=== PATIENT | male | born 1955 | race African-American/Black ===

== ENCOUNTER 2016-12-30 06:07 | Inpatient (IN) | payer OTHER ==
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
--- NOTE | ~2016-12-30 | US6 ---
[facility] A Service of [facility] & [facility] RADIOLOGY TEXT RESULTS PATIENT: AGUSTIN VAZQUEZ LOCATION: Psychiatric 566-01 : [birth year] UNIT #: [id number] AGE: [address]: Monroe Powell MD SEX: M ORDER DR: [id number] [facility] [address] [place], [place] [address] [id number] I MR#: [id number] Acc #: [id number] NAME: AGUSTIN VAZQUEZ. : 1955 SEX: M STUDY DATE/TIME: 01/02/2017 15:47 UNIT: Psychiatric ROOM: [facility] STUDY DESCRIPTION: US Abdominal Limited Attending Physician: Monroe Powell M.D. Ordering Physician: Monroe Powell M.D. Primary Care Physician: Maribel Krause M.D. MEDICAL IMAGING REPORT This report is preliminary unless electronic signature is present EXAM Right upper quadrant sonogram HISTORY 62-year-old male, known liver mass. History of alcohol use, cirrhosis and chronic hepatitis C. COMPARISON CT abdomen and pelvis 11/28/2016. FINDINGS Real-time examination demonstrates a hypoechoic mass lesion off the posterior aspect of the right lobe of the liver. This measures 4.6 x 4.6 x about 5.1 cm and not significantly changed from the patient's recent CT scan. The ultrasound findings are nonspecific but based on the CT, this was reported to be concerning for hepatocellular carcinoma. No other liver lesions are identified. Slightly coarse liver echotexture but no obvious surface nodularity identified. No intra- or extrahepatic ductal dilatation. Common bile duct measures 2.2 mm. The gallbladder demonstrates a small amount of sludge but no gallbladder wall thickening or stones. The right kidney appears normal measuring 10.2 cm in length. No hydronephrosis. No ascites. Pancreas poorly visualized due to overlying gas. Normal flow within the portal vein. IMPRESSION 1. Ultrasound confirms a hypoechoic mass in the posterior aspect of the right hepatic lobe, not significantly changed from patient's recent CT of 11/28/2016. Differential would include both benign as well as malignant processes. However, based on the CT findings and the patient's risk factors, hepatocellular carcinoma would be a strong consideration. 2. Small amount of gallbladder sludge but no gallstones. [facility] A Service of [facility] RADIOLOGY TEXT RESULTS PATIENT: AGUSTIN VAZQUEZ LOCATION: [place] [address] : [birth year] UNIT #: [id number] AGE: [address]: Monroe Powell MD SEX: M ORDER DR: Dictated by... Bk Pearl M.D. THIS IS AN ELECTRONICALLY VERIFIED REPORT Bk Pearl M.D. at 01/07/2017 1:20 PM GUALBERTO/jerald TD: 01/02/2017 19:16 JOB #: [id number] MEDICAL IMAGING REPORT Page 1 of 1 COPY
--- NOTE | ~2016-12-30 | EKG ---
PATIENT: AGUSTIN VAZQUEZ UNIT #: [id number] Ventricular Rate: 71 BPM Atrial Rate: 71 BPM P-R Interval: 168 ms QRS Duration: 90 ms Q-T Interval: 400 ms QTC Calculation(Bezet): 434 ms P [place]: 58 degrees Calculated R [place]: 44 degrees Calculated T [place]: -12 degrees Diagnosis Line: Normal sinus rhythm Diagnosis Line: nonspecific ST-T abnormalities Diagnosis Line: Abnormal ECG Diagnosis Line: No previous ECGs available Diagnosis Line: Confirmed by CHERELLE MORENO MD ([id number]) on Diagnosis Line: 12/30/2016 12:50:40 PM INTERPRETING MD: ALEXANDRU
--- NOTE | ~2016-12-30 | US77 ---
[facility] A Service of [facility] & [facility] RADIOLOGY TEXT RESULTS PATIENT: AGUSTIN VAZQUEZ [facility] 566-01 : [birth year] UNIT #: [id number] AGE: [address]: Monroe Powell MD SEX: M ORDER DR: [id number] [facility] [address] [place], [place] [address] [id number] I MR#: [id number] Acc #: [id number] NAME: AGUSTIN VAZQUEZ. : 1955 SEX: M STUDY DATE/TIME: 12/30/2016 10:16 [facility]OM: [facility] STUDY DESCRIPTION: US Kidney Bilateral Complete Attending Physician: Brooke Haddad M.D. Ordering Physician: Brooke Haddad M.D. Primary Care Physician: Maribel Krause M.D. MEDICAL IMAGING REPORT This report is preliminary unless electronic signature is present EXAM Renal ultrasound INDICATIONS Acute renal failure. Elevated BUN and creatinine. GFR 10.4. No comparisons. FINDINGS Murry-scale imaging of the kidneys and urinary bladder was performed. The right kidney measures 11.8 cm in length. No hydronephrosis. On the left the left kidney measures 9.8 cm in length. There is no hydronephrosis. The renal cortical thickness and echogenicity appears normal bilaterally. Bladder is distended with urine. IMPRESSION No hydronephrosis. Dictated by... Timothy Pearl M.D. THIS IS AN ELECTRONICALLY VERIFIED REPORT Timothy Pearl M.D. at 12/31/2016 4:35 PM RICARDO/taylor TD: 12/30/2016 12:32 JOB #: [id number] MEDICAL IMAGING REPORT Page 1 of 1 COPY
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
--- NOTE | ~2016-12-30 | XA166 ---
[facility] A Service of [facility] & [facility] RADIOLOGY TEXT RESULTS PATIENT: AUGSTIN VAZQUEZ [facility] 6 : 53 UNIT #: [id number] AGE: [address]: Monroe Powell MD SEX: M ORDER DR: [id number] [facility] [address] [place], [place] [address] [id number] I MR#: [id number] Acc #: [id number] NAME: AGUSTIN VAZQUEZ : 1955 SEX: M STUDY DATE/TIME: 01/01/2017 9:01 UNIT: [facility] ROOM: [facility] STUDY DESCRIPTION: XA PICC Line Placement WO Port Attending Physician: Monroe Powell M.D. Ordering Physician: Katelin Zafar M.D. Primary Care Physician: Maribel Krause M.D. MEDICAL IMAGING REPORT This report is preliminary unless electronic signature is present EXAM PICC placement. HISTORY Venous access needed for medications. TECHNIQUE The procedure was explained to the patient including risks, benefits and complications. Informed consent was obtained and a formal time-out procedure was utilized. Full barrier sterile technique was employed via standard protocol. Using full barrier sterile technique and following local anesthesia with 1% Xylocaine, a brachial vein on the right was canalized with a micropuncture set under ultrasound guidance. Ultrasound was used to confirm vessel patency, which was confirmed, and permanent ultrasound images were recorded. An 0.018 guidewire was passed into the superior vena cava under fluoroscopic guidance. A dilator and sheath were placed over the wire. A 5-Vietnamese double-lumen PICC was measured to 41 cm, cut and deployed with the tip positioned at the cavoatrial junction. The line was secured in place with an antibiotic patch and adhesive dressing. IMPRESSION Successful placement of a 5-Vietnamese double-lumen PICC via the right brachial vein above the elbow with ultrasound and fluoroscopic guidance. The tip of the PICC is in good position at the cavoatrial junction. Dictated by... Harley Sun M.D. [facility] A Service of [facility] & [facility] RADIOLOGY TEXT RESULTS PATIENT: AGUSTIN VAZQUEZ [facility] 566-01 : 53 UNIT #: [id number] AGE: [address]: Monroe Powell MD SEX: M ORDER DR: THIS IS AN ELECTRONICALLY VERIFIED REPORT Harley Sun M.D. at 01/01/2017 5:02 PM ODILIA/jerald TD: 01/01/2017 16:38 JOB #: [id number] MEDICAL IMAGING REPORT Page 1 of 1 COPY
--- NOTE | ~2016-12-30 | DS ---
Unit #: [id number] #: [id number] Patient: AGUSTIN VAZQUEZ [id number] [address] [place], [place] [address] [id number] MR#: [id number] NAME: AGUSTIN VAZQUEZ ROOM: 566 Age: 61 Sex: M Admission Date: 12/30/2016 : 1955 Discharge Date: 01/04/2017 Attending Physician: Monroe Powell M.D. Primary Care Physician: Maribel Krause M.D. DISCHARGE SUMMARY CONSULTANTS 1. Dr. Hany Walker, . 2. Dr. Nestor Gunderson. 3. Dr. Khan, dermatology. ADMITTING DIAGNOSIS Anemia, possible rectal bleed. DISCHARGE DIAGNOSES 1. Acute kidney injury. 2. Clostridium difficile colitis. 3. Possible gastrointestinal bleed. 4. Liver mass. 5. History of hepatitis C. 6. History of alcohol abuse. 7. History of recent meningitis. 8. Hypertension. 9. Noncompliance. HISTORY OF PRESENTING ILLNESS Patient is a 61-year-old, -[place] gentleman with a past medical history of chronic kidney disease; urinary retention; liver mass, which was recently diagnosed at [place], 5.3 cm, with no biopsy; hypertension; coronary artery disease; seizure; diabetes; cirrhosis; alcohol abuse; and chronic immobility. Presented to emergency room from rehab for the evaluation of rectal bleeding. He complained of having bloody stools prior to the hospitalization. HOSPITAL COURSE As he was on antimicrobial recently, his C. diff. was checked, which was positive. He was already on Flagyl. Flagyl was switched to oral vancomycin. His creatinine on admission was 6.1 (1) baseline was between 1-2s. He was Bumex prior to discharge to the rehab. In the hospital course, renal was consulted. His Bumex was kept on hold. He was given IV fluids. His creatinine started to improve and the last creatinine was about 3.8 on the December. He is becoming more alert and responsive. His hemoglobin dropped down to 7, thought to be dilutional versus secondary to acute blood loss anemia. He was transfused 2 units of blood. Unfortunately, he was refusing any blood work to be done and he was refusing to take the medications. I spoke with his brother at length in the hospital course. Brother wants him to be full code and as the patient is refusing everything, we will continue with the current medications. I spoke with the patient at length requesting him to cooperate with the treatment including taking the medications and getting Unit #: [id number] #: [id number] Patient: AGUSTIN VAZQUEZ the blood work done. He did have ingrown toenails. Dr. Khan evaluated him and did debride the toenails and recommended topical antifungal. He will be discharged to rehab today in a stable condition. I spoke with his brother also prior to the discharge. PHYSICAL EXAMINATION On the day of the discharge, his physical examination: VITAL SIGNS: Temperature 98.5, pulse rate 65, respirations 16, and blood pressure 131/74. GENERAL APPEARANCE: Patient is alert and oriented x3. Lying in the bed. No acute distress. HEENT: Normocephalic and atraumatic. No icterus. PERRLA. Extraocular movements intact. NECK: Supple. No JVD. HEART: S1 and S2 irregular. CHEST: Bilateral equal air entry. Clear to auscultation. ABDOMEN: Soft and nontender. EXTREMITIES: No edema. Normal pulses. DISCHARGE MEDICATIONS 1. Albuterol 3 mL nebulizations q.4 p.r.n. for shortness of breath. 2. Tylenol 650 q.6 p.r.n. for fever. 3. Magnesium oxide 400 mg p.o. twice a day. 4. Vancomycin 250 mg p.o. q.6 hours until the January. 5. Spiriva 18 mcg inhalations daily. 6. Lotrimin to be applied to the feet daily as required. 7. Nicotine 1 patch 14 mg topical every day. 8. Coreg 25 mg p.o. twice a day. 9. Norvasc 10 mg daily. 10. Humibid LA 600 mg twice daily. 11. Lipitor 40 mg at bedtime. 12. Clonidine 0.3 mg topical patch to be applied q.7 days. 13. Hydralazine 10 mg p.o. q.8 hours. 14. Pepcid 20 mg daily. 15. Aspirin 81 mg daily. 16. Protonix 40 mg p.o. daily. DISCHARGE INSTRUCTIONS Patient is instructed to follow up with his primary care in 1-2 weeks. Total time spent in his care: 35 minutes. Dictated by... Chan Ying TD: 01/04/2017 12:53 JOB #: [id number] Unit #: [id number] #: [id number] Patient: AGUSTIN VAZQUEZ DISCHARGE SUMMARY Page 1 of 1 X X DISCHARGE SUMMARY
--- NOTE | ~2016-12-30 | A ---
[facility] Nutrition Therapy DATE: 01/02/17 Patient: AGUSTIN VAZQUEZ Physician: AMIRAH Address: [address] Room/Bed: [address] [place] [address], Zip: [place] [address] Admit Date: 12/30/16 Date of : [birth year] Height: 6 0 Weight: 235 107 NUTRITIONAL ASSESSMENT: REASON: CONSULT PT IS 61 Y.O. MALE ADMITTED FOR LOYDA, GI BLEED, ABD PAIN PMH: T2DM, HTN, MD, COPD, PREVIOUS ETOH ABUSE, CAD, LIVER CANCER, CKD, HEP C, SEIZURE DISORDER, SACRAL DECUBITUS, CIRRHOSIS Anthropometrics: 6'0", WT: 250# (PER PT), BMI: 33.9 Labs: GLU: 134, BUN: 42, CREAT: 4.3, ALB: 2.9, AST: 43, GFR: 15.8 Meds: NACL, PEPCID, LIPITOR, LACTULOSE, NOVOLOG, PROTONIX I/O & Bowel function: 1360/608, 4 BMs NOTED Skin Integrity: PRESSURE ULCER BILATERAL BUTTOCKS; (R) GREAT TOE GANGRENE EDEMA: BLE TRACE EDEMA Estimated Nutrition Needs: INCREASED NUTRIENT NEEDS 2' CURRENT CONDITION, SKIN BREAKDOWN NOTED. Assessment: CHART REVIEWED AND EVENTS NOTED. PT SEEN FOR CONSULT. PT REPORTS DECREASED PO INTAKE 2' DECREASED APPETITE PAST FEW DAYS 2' ABD PAIN. PT REPORTS UBW IS ~269# BUT UNABLE TO IDENTIFY TIME FRAME OF WEIGHT LOSS. PER RN AND CHART, PT NOTES TO BE COMBATIVE, CONFUSED AND AGITATED AT TIMES REFUSING MEDICATIONS AND LABS. PLANS IN PLACE FOR MEDICAL OFFICE REP EVAL TODAY AND ADVANCE DIET PER MEDICAL OFFICE REP RECOMMENDATIONS. PT NOT APPROPRIATE FOR DIET EDUCATION AT THIS TIME. RD TO FOLLOW. PER CHART, HOSPICE WAS CONSULTED Dx: DECREASED NUTRIENT INTAKE R/T DECREASED APPETITE PAST DAYS AEB PT REPORT ABOVE. -ALTERED NUTRIENT NEEDS R/T CURRENT CONDITION, DX AEB PT NPO/CLEAR X 3 DAYS. Intervention: 1. CLEAR LIQUID DIET 2. ENSURE CLEAR BID Monitoring, Evaluation and Goals: 1. ORAL INTAKE; ADVANCE DIET PER MEDICAL OFFICE REP AND CONSUME >50% OF MEALS W/NO C/O N/V/D 2. LABS; WNL 3. WEIGHTS; PROMOTE GRADUAL WEIGHT LOSS 4. GI; PROMOTE REGULAR GI FUNCTION [facility] Nutrition Therapy DATE: 01/02/17 Patient: AGUSTIN VAZQUEZ Physician: AMIRAH Address: [address] Room/Bed: [address] [place] [address], Zip: [place] [address] Admit Date: 12/30/16 Date of : [birth year] Height: 6 0 Weight: 235 107 MONITOR: -DIET ADVANCEMENT -PO INTAKE/APPETITE -SUPPLEMENT INTAKE -LABS Recommendations: 1. ORDER APPLE ENSURE CLEAR BID W/MEALS 2. ADVANCE DIET PER MEDICAL OFFICE REP + CC/HH 2' PMH 3. ENCOURAGE SLOW GRADUAL PO INTAKE ONCE DIET ADVANCES RD WILL F/U PER PROTOCOL PT IS MILD/MODERATELY COMPROMISED Respectfully, ANTONIETA PAYTON MS, RD, LD [employer] [facility] cc: client file
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
[~2016-12-30 06:07] MED LIST: ALBUTEROL17 GM; ASPIRINEC; COLACE; COMBIVENT INH14.7 GM; DILANTIN; LASIX; LORTAB 10/500 T1 TAB; NITROGYLCERIN; PERCOCET5/325; ZITHROMAX
[2016-12-30 06:45] LABS: BASOPHIL# 0.1 X10e3 (0-0.3); BASOPHIL% 0.5 % (0-2.5); DIFF IND NO; EOSINOPHIL# 0.2 X10e3 (0-0.7); EOSINOPHIL% 1.5 % (0.0-7.0); HEMATOCRIT 27.7 % (38.0-50.0); HEMOGLOBIN 8.9 gm/dL (13.0-16.0); LYMPHOCYTE# 2.4 X10e3 (1.0-3.5); LYMPHOCYTE% 20.3 % (17.0-45.0); MEAN CELL VOLUME 108.9 FL (83-96); MEAN CORPUSCULAR HEMOGLOBIN 34.9 PG (28-34); MEAN PLATELET VOLUME 9.7 FL (6.5-11.5); MONOCYTE# 1.6 X10e3 (0-1.0); MONOCYTE% 13.9 % (3.0-12.0); NEUTROPHIL# 7.5 X10e3 (1.5-7.1); NEUTROPHIL% 63.8 % (40-75); PLATELET COUNT 124 X10e3 (140-420); RED BLOOD COUNT 2.54 X10e (3.90-5.60); RED CELL DISTRIBUTION WIDTH 15.1 % (11.0-15.5); WHITE BLOOD COUNT 11.7 X10e3 (4.0-10.5)
[2016-12-30 06:58] LABS: INR 1.2; PARTIAL THROMBOPLASTIN TIME 29.7 SECONDS (23.5-31.3); PROTHROMBIN TIME (PATIENT) 13.2 SECONDS (9.6-11.5)
[2016-12-30 07:18] LABS: ALBUMIN SERUM 3.2 g/dL (3.5-5.0); BILIRUBIN, DIRECT 0.9 mg/dL (0.0-0.2); BILIRUBIN,TOTAL 1.9 mg/dL (0.2-2.0); BUN/CREATININE RATIO 9.18; CALCIUM SERUM 9.7 mg/dL (8.4-10.2); CREATININE SERUM 6.1 mg/dL (0.6-1.4); GLOM FILT RATE Estimated 10.4 mL/min (>60); PROTEIN TOTAL SERUM 6.5 g/dL (6.0-8.3)
[2016-12-30 10:01] LABS: CREATININE SERUM 5.9 mg/dL (0.6-1.4); GLOM FILT RATE Estimated 10.8 mL/min (>60)
[2016-12-30 10:32] LABS: FOLATE (FOLIC ACID) 8.9 ng/mL (>5.8)
[2016-12-30 10:55] LABS: %MB 1.6 % (0.0-4.0); MB 1.6 ng/ml
[2016-12-30 12:07] LABS: URINE SOURCE CATH
[2016-12-30 12:14] LABS: URINE APPEARANCE CLEAR; URINE BILIRUBIN NEG (NEG); URINE BLOOD 1+ (NEG); URINE COLOR YELLOW; URINE GLUCOSE NEG (NEG); URINE KETONE NEG (NEG); URINE LEUKOCYTE ESTERASE TRACE (NEG); URINE NITRATE NEG (NEG); URINE PROTEIN 1+ (NEG); URINE SPECIFIC GRAVITY 1.013 (1.003-1.035); URINE UROBILINOGEN 0.2 MG/DL (NEG)
[2016-12-30 12:16] LABS: CULTURE INDICATED? YES; URINE BACTERIA AUWI NEG (NEGATIVE); URINE SQUAMOUS EPITHELIAL CELL OCC /[HPF]
[2016-12-30] MEDS ORDERED: IPRAT-ALBUT 0.5-3 ML INH (13:38)
[2016-12-30] MEDS ORDERED: FLAGYL PO (13:39)
[2016-12-30] MEDS ORDERED: PEPCID PO (13:40)
[2016-12-30] MEDS ORDERED: HYDRALAZINE HCL10 MG PO (13:54)
[2016-12-30] MEDS ORDERED: LACTULOSE10 GM/15 M PO (13:55)
[2016-12-30] MEDS ORDERED: ASPIRIN EC81 M1 PO (13:56)
[2016-12-30] MEDS ORDERED: NORVASC10 MG PO (14:08)
[2016-12-30] MEDS ORDERED: CATAPRES-TTS-30.3 M1 TD (14:10)
[2016-12-30] MEDS ORDERED: NICOTINE TRANSD14 MG TOP (14:11)
[2016-12-30] MEDS ORDERED: SPIRIVA18 MCG INH (14:11)
[2016-12-30] MEDS ORDERED: GUAIFENESIN600 M1 PO (14:12)
[2016-12-30] MEDS ORDERED: CARVEDILOL25 MG PO (14:13)
[2016-12-30] MEDS ORDERED: LIPITOR40 MG PO (14:15)
[2016-12-30] MEDS ORDERED: BUMEX2 MG PO (14:15)
[2016-12-31 12:26] LABS: HEMATOCRIT 25.3 % (38.0-50.0); HEMOGLOBIN 8.1 gm/dL (13.0-16.0); MEAN CELL VOLUME 109.8 FL (83-96); MEAN CORPUSCULAR HEMOGLOBIN 35.1 PG (28-34); MEAN PLATELET VOLUME 9.4 FL (6.5-11.5); RED BLOOD COUNT 2.31 X10e (3.90-5.60); RED CELL DISTRIBUTION WIDTH 15.1 % (11.0-15.5); WHITE BLOOD COUNT 7.4 X10e3 (4.0-10.5)
[2016-12-31 12:41] LABS: INR 1.3; PROTHROMBIN TIME (PATIENT) 13.3 SECONDS (9.6-11.5)
[2016-12-31 13:03] LABS: BILIRUBIN,TOTAL 1.8 mg/dL (0.2-2.0); BUN/CREATININE RATIO 9.62; CALCIUM SERUM 9.6 mg/dL (8.4-10.2); CREATININE SERUM 5.4 mg/dL (0.6-1.4); MAGNESIUM 1.5 mg/dL (1.6-3.0); PHOSPHOROUS 4.5 mg/dL (2.5-4.6); POTASSIUM 3.6 mmol/L (3.5-5.1); PROTEIN TOTAL SERUM 6.3 g/dL (6.0-8.3)
[2017-01-01 13:14] LABS: HEMATOCRIT 23.1 % (38.0-50.0); HEMOGLOBIN 7.4 gm/dL (13.0-16.0); MEAN CELL VOLUME 108.8 FL (83-96); MEAN CORPUSCULAR HEMOGLOBIN 35.1 PG (28-34); MEAN CORPUSCULAR HGB CONC 32.3 g/dL (30-36); MEAN PLATELET VOLUME 9.4 FL (6.5-11.5); RED BLOOD COUNT 2.12 X10e (3.90-5.60); WHITE BLOOD COUNT 8.2 X10e3 (4.0-10.5)
[2017-01-01 13:32] LABS: ALBUMIN SERUM 2.9 g/dL (3.5-5.0); BILIRUBIN,TOTAL 2.2 mg/dL (0.2-2.0); BUN/CREATININE RATIO 9.41; CALCIUM SERUM 9.2 mg/dL (8.4-10.2); CREATININE SERUM 5.1 mg/dL (0.6-1.4); GLOM FILT RATE Estimated 12.9 mL/min (>60); POTASSIUM 3.4 mmol/L (3.5-5.1); PROTEIN TOTAL SERUM 5.9 g/dL (6.0-8.3)
[2017-01-01 13:34] LABS: PHOSPHOROUS 3.4 mg/dL (2.5-4.6)
[2017-01-02 06:55] LABS: HEMATOCRIT 23.1 % (38.0-50.0); HEMOGLOBIN 7.5 gm/dL (13.0-16.0); MEAN CELL VOLUME 108.3 FL (83-96); MEAN CORPUSCULAR HEMOGLOBIN 35.2 PG (28-34); MEAN CORPUSCULAR HGB CONC 32.5 g/dL (30-36); MEAN PLATELET VOLUME 9.5 FL (6.5-11.5); RED BLOOD COUNT 2.14 X10e (3.90-5.60); WHITE BLOOD COUNT 8.9 X10e3 (4.0-10.5)
[2017-01-02 07:19] LABS: ALBUMIN SERUM 2.9 g/dL (3.5-5.0); BILIRUBIN,TOTAL 2.2 mg/dL (0.2-2.0); BUN/CREATININE RATIO 9.76; CALCIUM SERUM 9.3 mg/dL (8.4-10.2); CREATININE SERUM 4.3 mg/dL (0.6-1.4); GLOM FILT RATE Estimated 15.8 mL/min (>60); MAGNESIUM 1.9 mg/dL (1.6-3.0); PHOSPHOROUS 3.3 mg/dL (2.5-4.6); PROTEIN TOTAL SERUM 5.8 g/dL (6.0-8.3)
[2017-01-03 06:35] LABS: HEMATOCRIT 21.4 % (38.0-50.0); MEAN CELL VOLUME 108.2 FL (83-96); MEAN CORPUSCULAR HEMOGLOBIN 35.4 PG (28-34); MEAN CORPUSCULAR HGB CONC 32.7 g/dL (30-36); MEAN PLATELET VOLUME 9.6 FL (6.5-11.5); RED BLOOD COUNT 1.98 X10e (3.90-5.60); WHITE BLOOD COUNT 6.4 X10e3 (4.0-10.5)
[2017-01-03 07:21] LABS: ALBUMIN SERUM 2.6 g/dL (3.5-5.0); BILIRUBIN,TOTAL 1.7 mg/dL (0.2-2.0); BUN/CREATININE RATIO 9.47; CALCIUM SERUM 9.2 mg/dL (8.4-10.2); CREATININE SERUM 3.8 mg/dL (0.6-1.4); GLOM FILT RATE Estimated 18.4 mL/min (>60); POTASSIUM 3.9 mmol/L (3.5-5.1); PROTEIN TOTAL SERUM 5.2 g/dL (6.0-8.3)
== END 2017-01-04 18:39 | DRG 372 ==
LOC: CED 06:07 → CEDOF 08:30 → C5C 11:34
PROVIDERS: Emergency Medicine; Family Medicine; Internal Medicine; Internal Medicine Nephrology
PROC: 02HV33Z Insertion of Infusion Device into Superior Vena Cava, Percutaneous Approach (ICD-10-PCS; 2017-01-01)
PROC: B548ZZA Ultrasonography of Superior Vena Cava, Guidance (ICD-10-PCS; 2017-01-01)
PROC: 30243N1 Transfusion of Nonautologous Red Blood Cells into Central Vein, Percutaneous Approach (ICD-10-PCS; principal; 2017-01-03)
PROC: 0HBRXZZ Excision of Toe Nail, External Approach (ICD-10-PCS; 2017-01-03)
PROC: 0HBRXZZ Excision of Toe Nail, External Approach (ICD-10-PCS; 2017-01-03)
PROC: 0HBRXZZ Excision of Toe Nail, External Approach (ICD-10-PCS; 2017-01-03)
PROC: 0HBRXZZ Excision of Toe Nail, External Approach (ICD-10-PCS; 2017-01-03)
PROC: 0HBRXZZ Excision of Toe Nail, External Approach (ICD-10-PCS; 2017-01-03)
PROC: 0HBRXZZ Excision of Toe Nail, External Approach (ICD-10-PCS; 2017-01-03)
PROC: 0HBRXZZ Excision of Toe Nail, External Approach (ICD-10-PCS; 2017-01-03)
PROC: 0HBRXZZ Excision of Toe Nail, External Approach (ICD-10-PCS; 2017-01-03)
PROC: 0HBRXZZ Excision of Toe Nail, External Approach (ICD-10-PCS; 2017-01-03)
PROC: 0HBRXZZ Excision of Toe Nail, External Approach (ICD-10-PCS; 2017-01-03)
DX: A04.7 Enterocolitis due to Clostridium difficile (principal); N17.9 Acute kidney failure, unspecified; L89.159 Pressure ulcer of sacral region, unspecified stage; E11.22 Type 2 diabetes mellitus with diabetic chronic kidney disease; R56.9 Unspecified convulsions; D62 Acute posthemorrhagic anemia; K74.60 Unspecified cirrhosis of liver; R16.0 Hepatomegaly, not elsewhere classified; N18.3 Chronic kidney disease, stage 3 (moderate); K92.2 Gastrointestinal hemorrhage, unspecified; I12.9 Hypertensive chronic kidney disease with stage 1 through stage 4 chronic kidney disease, or unspecified chronic kidney disease; Z87.891 Personal history of nicotine dependence; Z51.5 Encounter for palliative care; Z86.19 Personal history of other infectious and parasitic diseases; Z91.19 Patient's noncompliance with other medical treatment and regimen; I25.10 Atherosclerotic heart disease of native coronary artery without angina pectoris; L60.0 Ingrowing nail; B35.3 Tinea pedis; D72.829 Elevated white blood cell count, unspecified; M62.3 Immobility syndrome (paraplegic); F10.10 Alcohol abuse, uncomplicated; J44.9 Chronic obstructive pulmonary disease, unspecified
CPT/HCPCS: 36415; 76705; 76770; 76937; 77001; 80048; 80053; 80076; 81003; 82140; 82378; 82550; 82553; 82565; 82570; 82607; 82746; 82947; 83036; 83540; 83550; 83735; 84100; 85025; 85027; 85610; 85730; 86850; 86900; 86901; 86923; 87040; 87086; 87177; 87209; 87493; 89190; 92610; 93005; 94640; 94760; 96374; 97167; 97530; 99285; C1751; C9113; G8996-GN; G8997-GN; G8998-GN; J3475; J3480; P9016